=== PATIENT | female | born 1975 | race Hispanic/Latino ===

== ENCOUNTER → 2024-04-16 | Day surgery (SDC) | payer OTHER ==
[~2024-04-16] MED LIST: ASPIRIN81 MG PO; CENTRUM ADULTS1 EACH PO; CETIRIZINE HCL10 M1 PO; FLOMAX0.4 MG PO; FLONASE NS; GLIMEPIRIDE2 MG PO; GLIPIZIDE5 MG PO; GLUCAGON FOR INJ 1 MG VIAL ONE; GLUCOPHAGE PO; IBUPROFEN800 MG PO; JARDIANCE25 MG PO; LEVEMIR100 UNIT/1 SQ; LIDOCAINE HCL 2% LOCAL INJ 5 ML SDV VIAL INJ ONE; METFORMIN HCL500 M1 PO; PROPOFOL IV EMULSION 10 MG/ML 20 ML VIAL ONE; PROPOFOL IV EMULSION 50 ML IV ONE; ROSUVASTATIN CA10 MG PO; TRESIBA100 UNIT/1 SQ
[2024-04-16] MEDS: LACTATED RINGER'S 1,000 ML ONE (11:47)
[2024-04-16 14:28] VITALS: TEMP 97.5
[2024-04-16 15:00] VITALS: BP 124/76; PULSE 87; RESP 16; O2SAT 99
== END | disposition home or self-care (01) ==
LOC: OR 10:52
PROVIDERS: ATTEND Internal Medicine Gastroenterology
DX: K59.04 Chronic idiopathic constipation (principal); D12.2 Benign neoplasm of ascending colon; D12.3 Benign neoplasm of transverse colon; D12.4 Benign neoplasm of descending colon; K57.30 Diverticulosis of large intestine without perforation or abscess without bleeding; Z71.3 Dietary counseling and surveillance; E11.9 Type 2 diabetes mellitus without complications; E78.5 Hyperlipidemia, unspecified; Z71.89 Other specified counseling; Z88.0 Allergy status to penicillin; Z88.2 Allergy status to sulfonamides; Z01.810 Encounter for preprocedural cardiovascular examination; Z79.82 Long term (current) use of aspirin; Z79.1 Long term (current) use of non-steroidal anti-inflammatories (NSAID); Z79.84 Long term (current) use of oral hypoglycemic drugs; Z79.4 Long term (current) use of insulin
CPT/HCPCS: 45385; 93005; J1610; J2003; J2704 ×2; J7121; 45378